=== PATIENT | female | born 1940 | race Two or more races ===

== ENCOUNTER 2017-01-16 22:51 | Emergency (ER) | payer MEDICAID, MEDICARE ==
[~2017-01-16] VITALS: Ht 154.9 cm; Wt 72.6 kg
[~2017-01-16 22:51] MED LIST: ASPIRIN81 MG ORAL; DILANTIN100 MG ORAL; DONEPEZIL HCL10 MG ORAL; NEXIUM40 MG ORAL; PEPCID20 MG ORAL; PRIMIDONE250 MG ORAL
[2017-01-16] MEDS ORDERED: BENICAR HCT 401 EACH ORAL (23:00)
[2017-01-16] MEDS ORDERED: ALLOPURINOL100 M1 ORAL (23:00)
[2017-01-16] MEDS ORDERED: LR 1000ml 1,000 ML IV SCH (23:15)
[2017-01-16] MEDS ORDERED: Famotidine 20 MG/ 2ML VIAL IVP ONE (23:15)
[2017-01-16] MEDS ORDERED: Tubing IV Cassette IV ONE (23:41)
[2017-01-16 23:59] LABS: MEAN CORPUSCULAR HEMOGLOBIN 32.7 PG (27.0-31.0); MEAN CORPUSCULAR HGB CONC 35.8 G/DL (32.0-36.0); MEAN CORPUSCULAR VOLUME 92 FL (80-99); MEAN PLATELET VOLUME 9.8 FL (6.5-10.1); PLATELET COUNT 169 K/UL (150-450); RED CELL DISTRIBUTION WIDTH 12.2 % (11.6-14.8); WHITE BLOOD COUNT 9.9 K/UL (4.8-10.8)
[2017-01-17 00:12] LABS: TROPONIN I < 0.30 ng/mL (<=0.30)
[2017-01-17 00:15] LABS: ALANINE AMINOTRANSFERASE 33 U/L (3-33); ALBUMIN/GLOBULIN RATIO 1.3 (1.0-2.7); ANION GAP 18 (5-15); ASPARTATE AMINO TRANSFERASE 43 U/L (5-40); CALCIUM 8.4 mg/dL (8.6-10.2); CARBON DIOXIDE 22 mEQ/L (20-30); CHLORIDE 95 mEQ/L (98-107); CREATININE 1.3 mg/dL (0.5-0.9); HEMOLYSIS 7; LIPASE 33 U/L (< 60); POTASSIUM 4.2 mEQ/L (3.4-4.9); SODIUM 135 mEQ/L (135-145)
[2017-01-17 00:39] VITALS: BP 136/62
[2017-01-17] MEDS ORDERED: BENTYL10 MG ORAL (01:45)
[2017-01-17] MEDS ORDERED: ZOFRAN ODT4 MG ORAL (01:45)
--- NOTE | 2017-01-17 01:53 | Emergency Room Report ---
History of Present Illness General Chief Complaint: Nausea, Vomiting, and Diarrhea Source: Patient, Family Member Present Illness HPI [id number] without known past surgical history brought in by daughter with nausea/ vomiting and watery diarrhea just since earlier tonight. Denies fever/chills, abd pain, sick contacts, foreign travel. No blood in vomit or stool. Unable to tolerate PO. Allergies: Coded Allergies: No Known Allergies (Unverified , 01/16/17) Patient History Limited by: language barrier Past Medical History: see triage record, old chart reviewed Past Surgical History: none Pertinent Family History: none Social History: Denies: alcohol use, drug use, smoking Last Menstrual Period: n/a Now: No Immunizations: UTD Reviewed Nursing Documentation: PMH: Agreed, PSxH: Agreed Nursing Documentation-PMH Past Medical History: No History, Except For Hx Hypertension: Yes Hx Seizures: Yes Review of Systems All Other Systems: negative except mentioned in HPI Physical Exam Vital Signs Date Time Temp Pulse Resp B/P Pulse Ox O2 Delivery O2 Flow Rate FiO2 01/16/17 22:54 97.5 114 20 129/61 94 Room Air Sp02 EP Interpretation: reviewed, normal General Appearance: normal inspection, well appearing, no apparent distress, alert, GCS 15, non-toxic Head: normocephalic, atraumatic Eyes: bilateral eye EOMI, bilateral eye PERRL ENT: normal ENT inspection, hearing grossly normal, normal voice Neck: normal inspection, full range of motion, supple, no bony tend Respiratory: normal inspection, lungs clear, normal breath sounds, no respiratory distress, no retraction, no wheezing Cardiovascular #1: regular rate, rhythm, no edema Gastrointestinal: normal inspection, normal bowel sounds, non tender, soft, no guarding, no hernia Genitourinary: no CVA tenderness Musculoskeletal: normal inspection, back normal, normal range of motion, Merlin' s Sign negative Neurologic: normal inspection, alert, oriented x3, responsive, scrap collector III-XII nml as tested, motor strength/tone normal, speech normal Psychiatric: normal inspection, judgement/insight normal, mood/affect normal Skin: normal inspection, normal color, no rash Medical Decision Making Diagnostic Impression: Primary Impression: Nausea, vomiting, and diarrhea Additional Impression: Viral gastroenteritis ER Course Nausea/vomiting and diarrhea - VSS. Afebrile. - Abdomen grossly non-tender on serial exam - Labs: No leuks. H&H stable. Elevated serumCr c/w previous, known CKD - No additional vomiting/diarrhea here after meds given - 1L NS hydration provided - patient still anuric after this, so likely dehydrated - Tolerating PO - Given afebrile, no leuks, and non-focal abdomen and no history of abd/pelvic surgery, low suspicion for acute bacterial/surgical process requiring additional imaging/admission at this time Rx zofran, bentyl, PMD followup Last Vital Signs Date Time Temp Pulse Resp B/P Pulse Ox O2 Delivery O2 Flow Rate FiO2 01/17/17 01:31 99.8 01/17/17 00:39 109 24 136/62 95 Room Air Status: improved Disposition: HOME, SELF-CARE Condition: Improved Scripts Ondansetron Odt* (ZOFRAN ODT*) 4 Mg Tab.rapdis 4 MG ORAL BID Y for Nausea & Vomiting for 7 Days, #14 TAB 0 Refills Prov: NADEGE BROWN M.D. 01/17/17 Dicyclomine Hcl* (BENTYL*) 10 Mg Capsule 10 MG ORAL BID for 3 Days, #6 CAP Prov: NADEGE BROWN M.D. 01/17/17 Referrals: NON PHYSICIAN (PCP) Patient Instructions: Dehydration, Adult, Plps-[id number], Viral Gastroenteritis, Adult, [id number] Additional Instructions: -Continue to drink plenty of fluid at home - Take zofran as needed for nausea/vomiting and bentyl for diarrhea Follow up with primary care doctor in 2-3 days NADEGE BROWN M.D. Jan 17, 2017 01:53
[2017-01-17 01:54] VITALS: BP 135/56
[2017-01-17 01:57] VITALS: BP 135/56
== END 2017-01-17 01:58 | disposition home or self-care (01) ==
LOC: EMR 23:40
DX: A08.4 Viral intestinal infection, unspecified (principal); I10 Essential (primary) hypertension
CPT/HCPCS: 36415; 80053; 83690; 84484; 85025; 93005; 96374; 96375; 99284; J2405; J7120; S0028

== ENCOUNTER 2017-04-25 20:59 | Emergency (ER) | payer MEDICAID, MEDICARE ==
[~2017-04-25] VITALS: Ht 154.9 cm; Wt 74.8 kg
[~2017-04-25 20:59] MED LIST changes: +ALLOPURINOL100 M1 ORAL; +BENICAR HCT 401 EACH ORAL; +BENTYL10 MG ORAL; +ZOFRAN ODT4 MG ORAL
--- NOTE | 2017-04-25 21:38 | Emergency Room Report ---
History of Present Illness General Chief Complaint: Laceration Source: Patient, Family Member Present Illness HPI Is a 76-year-old female with multiple medical problems including seizure. She is unsteady on her feet. She uses a cane. She presents with chief complaint of head injury and laceration to the scalp. She was unsteady her feet and tripped and fall backward. Hit the floor. Did not pass out. This occurred about an hour ago. No other injury. Small amount of bleeding to the back of the head. Similar symptoms in the past. She is only taking a baby aspirin for anticoagulations. Allergies: Coded Allergies: No Known Allergies (Unverified , 01/16/17) Patient History Past Medical History: see triage record, old chart reviewed, seizures Past Surgical History: other Pertinent Family History: none Social History: Denies: smoking Now: No Immunizations: other Reviewed Nursing Documentation: PMH: Agreed, PSxH: Agreed Nursing Documentation-PMH Hx Hypertension: Yes Hx Seizures: Yes Review of Systems Eye: Denies: eye pain, blurred vision ENT: Denies: ear pain, nose congestion, throat swelling Respiratory: Denies: cough, shortness of breath Cardiovascular: Denies: chest pain, palpitations Gastrointestinal: Denies: abdominal pain, diarrhea, nausea, vomiting Musculoskeletal: Denies: back pain, joint pain Skin: Denies: rash Neurological: Denies: headache, numbness Endocrine: Denies: increased thirst, increased urine Hematologic/Lymphatic: Denies: easy bruising All Other Systems: negative except mentioned in HPI Physical Exam Vital Signs Date Time Temp Pulse Resp B/P (MAP) Pulse Ox O2 Delivery O2 Flow Rate FiO2 04/25/17 21:17 98.1 91 16 140/82 98 Room Air vitals unremarkable Sp02 EP Interpretation: reviewed, normal General Appearance: well appearing, no apparent distress, alert Head: normocephalic, other - 1 cm laceration to the occiput. Eyes: bilateral eye PERRL, bilateral eye EOMI ENT: hearing grossly normal, normal pharynx Neck: full range of motion, supple, no meningismus Respiratory: chest non-tender, lungs clear, normal breath sounds Cardiovascular #1: regular rate, rhythm, no murmur Gastrointestinal: normal bowel sounds, non tender, no mass, no organomegaly, no bruit, non-distended Musculoskeletal: back normal, gait/station normal, normal range of motion Psychiatric: mood/affect normal Skin: warm/dry Procedures Laceration/Wound Repair Laceration/Wound Repair : Consent: Verbal Wound Location: upper extremity Wound's Depth, Shape: into muscle, linear Wound Length (cm): 1 Wound Explored: clean Irrigated w/ Saline (ccs): 500 Betadine Prep?: No Anesthesia: 1% Lidocaine Volume Anesthetic (ccs): 3 Wound Repaired With: sutures Suture Size/Type: 3:0, proline Number of Sutures: 3 Patient Tolerated: Well Complications: None Medical Decision Making Diagnostic Impression: Primary Impression: Head injury, acute Qualified Codes: S09.90XA - Unspecified injury of head, initial encounter Additional Impression: Scalp laceration Qualified Codes: S01.01XA - Laceration without foreign body of scalp, initial encounter ER Course Patient presents with a fall head injury and laceration. No bleed or fracture. We'll discharge home. CT/MRI/US Diagnostic Results CT/MRI/US Diagnostic Results : Imaging Test Ordered: CT head Impression read by radiologist. Negative. Last Vital Signs Date Time Temp Pulse Resp B/P (MAP) Pulse Ox O2 Delivery O2 Flow Rate FiO2 04/25/17 21:17 98.1 91 16 140/82 98 Room Air Status: improved Disposition: HOME, SELF-CARE Condition: Improved Patient Instructions: Laceration Care, Adult Additional Instructions: Suture out in 5-7 days. Hold aspirin for 7 days. Followup with your Dr. in 5- 7 days. Return if worse. ADRY MANN M.D. Apr 25, 2017 21:38
[2017-04-25] MEDS ORDERED: Acetaminophen 500mg (ES) tab ORAL ONE (21:45)
[2017-04-25 22:24] VITALS: BP 140/82
--- NOTE | 2017-04-26 08:33 | Diagnostic Imaging Report ---
Indication: TRAUMA, status post fall Technique: spiral acquisitions obtained through the brain. Angled axial and coronal 5 x 5 mm slices were reconstructed. No IV contrast utilized. Radiation dose was minimized using automated exposure control Total dose length product 1516 mGycm. CTDIvol(s) 70 mGy Comparison: none FINDINGS: No acute hemorrhage or edema. No mass effect or midline shift. There is age-related enlargement of the ventricles and extra axial CSF spaces. There is periventricular deep white matter ischemic change. Normal [place]-white differentiation. Visualized orbits are unremarkable. Visualized sinuses are unremarkable. Intact calvarium. IMPRESSION: Chronic and age-related changes. Negative for acute intracranial bleed or mass effect This agrees with the preliminary interpretation provided overnight by [facility] service. The CT scanner at [facility] is accredited by the [employer] and the scans are performed using protocols designed to limit radiation exposure to as low as reasonably achievable to attain images of sufficient resolution adequate for diagnostic evaluation
== END 2017-04-25 22:20 | disposition home or self-care (01) ==
LOC: EMR 21:35
DX: S01.01XA Laceration without foreign body of scalp, initial encounter (principal); W01.0XXA Fall on same level from slipping, tripping and stumbling without subsequent striking against object, initial encounter; Y93.9 Activity, unspecified; Y99.9 Unspecified external cause status; Z79.82 Long term (current) use of aspirin; I10 Essential (primary) hypertension; Z86.69 Personal history of other diseases of the nervous system and sense organs
CPT/HCPCS: 70450; 99284